=== PATIENT | female | born 1980 | race Caucasian/White ===

== ENCOUNTER → 2019-02-07 | Outpatient (CLI) | payer BC ==
[~2019-02-07] MED LIST: AMOXICILLIN875 MG PO; ASPIRIN EC81 M1 PO; AUGMENTIN 875-1 EACH PO; AUGMENTIN 875875 M1 PO; CARVEDILOL25 MG PO; CIPRO500 MG PO; FLAGYL500 MG PO; GLUMETZA500 PO; HYDROCODONE-AP1 EAC6 PO; LISINOPRIL5 MG PO; MAGNESIUM250 M1 PO; NITROFURANTOIN100 MG PO; NORCO 5-325 TA1 EACH PO; PHENERGAN 25 MG25 M1 PO; PYRIDIUM200 MG PO; ZOFRAN ODT4 MG PO; ZYRTEC10 M4 PO
== END ==
LOC: M.MRI 06:59
DX: G44.1 Vascular headache, not elsewhere classified (principal); I15.8 Other secondary hypertension; I45.81 Long QT syndrome; I34.1 Nonrheumatic mitral (valve) prolapse

== ENCOUNTER → 2019-08-29 | Outpatient (CLI) | payer BC | LOC: M.RAD 08:11 | PROVIDERS: ATTEND Family Medicine | DX: Z12.31 Encounter for screening mammogram for malignant neoplasm of breast (principal) ==

== ENCOUNTER → 2019-12-12 | Outpatient (CLI) | payer OTHER ==
--- NOTE | 2020-01-03 12:57 | SLEEP ---
[facility] [address] [place] [address] SLEEP STUDY REPORT Name: LORENA HERRING Room: [facility]#: [id number] Admission: 12/12/19 Attend Phys: Kenneth Ireland Discharge: Date of : 78 Report #: [id number] THIS REPORT FOR: //name// CC: Julieta Parker This study has been reviewed in its entirety by a board certified sleep specialist DATE OF SERVICE: 12/12/2019 HOME SLEEP STUDY INTERPRETATION: Total duration of the study is 606 minutes. During this time duration, we recorded 107 hypopneas in addition to 6 obstructive apneas with an overall apnea-hypopnea index of 11.9. Body position data indicates the patient was observed in the supine position for 584 minutes. Rest of the time, the patient was in other positions. There are several desaturations recorded as well; however, the O2 saturation dropped below 90% for 6.6 minutes. Mean heart rate was 80. IMPRESSION: Obstructive sleep apnea with an apnea-hypopnea index of 11.9 with mild nocturnal hypoxemia as described above. RECOMMENDATIONS: 1. Options include proceeding to an in-lab sleep study for positive airway pressure titration or the use of a CPAP auto titrated device. Clinical correlation is advised. 2. Recommend avoiding driving or other activities requiring vigilance if drowsy. This entire sleep study was reviewed by board certified sleep physician. <ELECTRONICALLY SIGNED> By: Matheus James MD 01/03/20 [id number] daniel Bhakta
== END ==
LOC: M.SLEEPLAB 08:23 → M.PUL 08:30
PROVIDERS: ATTEND Family Medicine
DX: G47.33 Obstructive sleep apnea (adult) (pediatric) (principal); G47.34 Idiopathic sleep related nonobstructive alveolar hypoventilation

== ENCOUNTER → 2020-12-09 | Outpatient (CLI) | payer OTHER | LOC: M.RAD 06:52 | PROVIDERS: ATTEND Family Medicine | DX: Z12.31 Encounter for screening mammogram for malignant neoplasm of breast (principal) ==